=== PATIENT | female | born 1975 | race Caucasian/White ===

== ENCOUNTER 2020-04-06 00:22 | Outpatient (CLI) | payer OTHER, SELFPAY ==
[2020-04-06 19:31] LABS: SARS-CoV-2 RNA PCR Negative
== END 2020-04-06 00:23 | disposition home or self-care (01) ==
LOC: ANHCOVIDDT 00:22
PROVIDERS: PCP Family Medicine; Visit Provider Internal Medicine Gastroenterology
DX: Z01.812 Encounter for preprocedural laboratory examination (principal); Z20.828 Contact with and (suspected) exposure to other viral communicable diseases
CPT/HCPCS: 87635; C9803; U0003

== ENCOUNTER 2020-04-08 02:08 | Day surgery (SDC) | payer OTHER, SELFPAY ==
[2020-04-02 08:31] VITALS: BMI 21.8
--- NOTE | 2020-04-06 14:34 | WPDANESEPPF ---
Anes - Initial Pre Proc Eval Procedure: Operation Date: 04/08/20 08:00 Proposed Procedures p Screening Colonoscopy - James Donnelly MD Date/Time: 04/06/20 14:34 Surgeon: James Donnelly MD Pre Op Diagnosis: Neoplasm Screening,Fam Hx Colon CA & Polyps Patient Data Age: 45 Gender: F Height: 1.68 m Weight: 61.36 kg Allergies Allergy/AdvReac Type Severity Reaction Status Date / Time No Known Allergies Allergy Verified 04/08/20 06:47 Home Medications Medication Instructions Recorded Confirmed Type No Home Medications 04/02/20 04/08/20 History Patient hx anesthesia problems: none Family hx anesthesia problems: none [facility] Past Medical History Medical History (Updated 04/06/20 @ 14:34 by Adrien Caldwell DO) PÉREZ (obstructive sleep apnea) mild - dental device Renal stones Surgical History Surgical History (Updated 04/06/20 @ 14:34 by Adrien Caldwell DO) History of breast implant History of Anes - Eval Final PreProcedure Day of Procedure 04/06/20 14:34 Patient weight: normal Heart: regular rate and rhythm Lungs: clear to auscultation and normal air movement Airway: Mallampati scale class II Neurological: alert and oriented Last oral intake: >/= 8 hours ASA classification: II Emergent: no Anesthetic plan: proceed Anesthesia type and monitoring: general GIVS and standard monitoring Informed Consent: The patient's anesthetic plan and its attendant risks and benefits were discussed with the patient/family/POA. Questions were solicited and answers provided to the satisfaction of the patient/family/POA.
[2020-04-08 06:48] VITALS: BP 111/63; PULSE 79; RESP 18; TEMP 36.3; O2SAT 97
[2020-04-08] MEDS: LACTATED RINGERS 1,000 ML 150 ML IV CONT (06:58)
--- NOTE | 2020-04-08 08:11 | WPDGICN ---
Assessment and Plan Assessment and plan (1) Family history of colon cancer in mother: Code(s): Z80.0 - Family history of malignant neoplasm of digestive organs Status: Acute Assessment and Plan: Patient's mother had colon cancer in her brother had colon polyps. Plan is for screening colonoscopy now and at 5 year intervals in the future. High-fiber diet is advised. (2) Family history of colonic polyps: Code(s): Z83.71 - Family history of colonic polyps Status: Acute GI Consult Note Consult date/time: 04/08/20 08:11 HPI: Aida Payan is a 45 year old female [facility] at the request of Dr Ashley Munoz. Patient presents for screening colonoscopy. She states that her current weight appetite bowel movements are normal. She denies abdominal pain. She has had no bleeding. Bowel habits are normal and regular. Her family history is significant her mother had colon cancer a brother has had colon polyps. Patient's last colonoscopy 6 years ago was unremarkable. Review of Systems Review of Systems: All systems reviewed & are unremarkable except as noted in HPI and below PMFSH Past Medical History Medical History PÉREZ (obstructive sleep apnea) mild - dental device Renal stones Surgical History Surgical History History of breast implant History of Meds Home Medications and Allergies Home Medications Medication Instructions Recorded Confirmed Type No Home Medications 04/02/20 04/08/20 History Allergies Allergy/AdvReac Type Severity Reaction Status Date / Time No Known Allergies Allergy Verified 04/08/20 06:47 Vital Signs Vital Signs - 24 hr 04/08/20 06:48 Temperature 97.4 F L Pulse Rate 79 Respiratory Rate 18 Blood Pressure 111/63 Pulse Oximetry 97 Exam Narrative: Exam Narrative: Physical exam reveals patient to be alert. Vital signs stable. HEENT exam unremarkable. Lungs are clear to auscultation and percussion. Heart is without murmur or extra sounds. Abdominal exam bowel sounds are present soft nontender with no organomegaly. Digital external rectal exam is normal.
[2020-04-08 08:38] VITALS: BP 98/41; PULSE 74; RESP 18; O2SAT 98
[2020-04-08 08:48] VITALS: BP 94/61; PULSE 74; RESP 18; O2SAT 98
[2020-04-08 08:58] VITALS: BP 107/73; PULSE 68; RESP 18; O2SAT 98
== END 2020-04-08 09:19 | disposition home or self-care (01) ==
PROVIDERS: PCP Family Medicine; Visit Provider Internal Medicine Gastroenterology
PROC: 0DJD8ZZ Inspection of Lower Intestinal Tract, Via Natural or Artificial Opening Endoscopic (ICD-10-PCS; CPT 45378; principal; 2020-04-08 08:00)
DX: Z12.11 Encounter for screening for malignant neoplasm of colon (principal); K64.8 Other hemorrhoids; Z80.0 Family history of malignant neoplasm of digestive organs; Z83.71 Family history of colonic polyps; G47.33 Obstructive sleep apnea (adult) (pediatric)
CPT/HCPCS: 45378; J2704; J7120